=== PATIENT | male | born 1945 | race Two or more races ===

== ENCOUNTER 2019-04-24 13:30 | Outpatient (CLI) | payer MEDICARE, OTHER ==
[~2019-04-24] VITALS: Ht 175.3 cm; Wt 102.1 kg
[2019-04-24 15:04] VITALS: BP 125/98
[2019-04-24] MEDS ORDERED: PREDNISONE2.5 MG ORAL (15:14)
[2019-04-24] MEDS ORDERED: FOLIC ACID1 MG ORAL (15:14)
[2019-04-24] MEDS ORDERED: METHOTREXATE2.5 MG PO (15:14)
[2019-04-24] MEDS ORDERED: PHENYTOIN SODI100 MG ORAL (15:14)
[2019-04-24] MEDS ORDERED: HYDROCHLOROTHIA25 MG ORAL (15:14)
[2019-04-24] MEDS ORDERED: SPIRONOLACTONE100 MG ORAL (15:14)
[2019-04-24] MEDS ORDERED: LINZESS145 MCG PO (15:14)
--- NOTE | 2019-04-25 03:00 | Consultation ---
DATE OF CONSULTATION: 04/24/2019 GASTROENTEROLOGY CONSULTATION CONSULTING PHYSICIAN: Koby Chand M.D. CHIEF COMPLAINT: Constipation. HISTORY OF PRESENT ILLNESS: This is a 73-year-old male with a history of past medical history of hypertension, seizure disorder, and arthritis, referred to us for a screening colonoscopy. The patient suffers from chronic constipation . PAST MEDICAL HISTORY: 1. Hypertension. 2. Seizure disorder. 3. Arthritis. PAST SURGICAL HISTORY: History of cholecystectomy, appendectomy, and ventral hernia repair. MEDICATIONS: Please see medication reconciliation list. SOCIAL HISTORY: The patient denies any tobacco, alcohol, or drug abuse. FAMILY HISTORY: Noncontributory. REVIEW OF SYSTEMS: A 10-point review of systems was performed and pertinent positives in HPI. Review of systems positive for abdominal pain, GERD, constipation, and nausea. PHYSICAL EXAMINATION: VITAL SIGNS: Temperature 97.8, blood pressure is 112/98, pulse 73, and respirations 20. HEENT: Normocephalic and atraumatic. Sclerae anicteric. NECK: Supple. No evidence of lymphadenopathy. CARDIOVASCULAR: Regular rate and rhythm. Plus S1 and S2. No obvious murmur. LUNGS: Clear to auscultation bilaterally. ABDOMEN: Positive bowel sounds. Soft and nontender. No rebound. No guarding. No peritoneal sign. EXTREMITIES: No cyanosis. No clubbing. No edema. ASSESSMENT AND PLAN: This is a 73-year-old male with chronic constipation screening colonoscopy evaluation. The patient was given instruction for colonoscopy. The procedure was explained to him and risks and benefits were informed to him. The patient agreed, was scheduled for this Monday. I want to thank, Dr. Fagan, for this kind referral. Koby Chand M.D. DR: CECILY JOB#: [id number] CC: Jeronimo Fagan M.D.
== END 2019-04-24 15:30 | disposition home or self-care (01) ==
LOC: PAN 13:30
DX: K59.00 Constipation, unspecified (principal); I10 Essential (primary) hypertension; G40.909 Epilepsy, unspecified, not intractable, without status epilepticus; M19.90 Unspecified osteoarthritis, unspecified site; Z90.49 Acquired absence of other specified parts of digestive tract; Z90.89 Acquired absence of other organs
CPT/HCPCS: 99202

== ENCOUNTER 2019-05-28 10:13 | Outpatient (CLI) | payer MEDICARE, OTHER ==
[~2019-05-28 10:13] MED LIST: FOLIC ACID1 MG ORAL; HYDROCHLOROTHIA25 MG ORAL; LINZESS145 MCG PO; METHOTREXATE2.5 MG PO; PHENYTOIN SODI100 MG ORAL; PREDNISONE2.5 MG ORAL; SPIRONOLACTONE100 MG ORAL
[2019-05-28 10:22] VITALS: BP 115/83
--- NOTE | 2019-05-28 10:59 | General Progress Note ---
Assessment/Plan Assessment/Plan: REASON FOR PROCEDURE: The procedure, risks, benefits, and possible consequences, including hemorrhage, aspiration, perforation and infection, and alternative treatments, were explained to the patient/legal guardian by Dr. Koby Chand and the patient/legal guardian understood and accepted these risks. PROCEDURE IN DETAIL: After informed consent was obtained and the patient was adequately sedated, first rectal exam was performed, which was normal. Then, the scope was advanced from the rectum into the cecum documented by appendix orifice, ileocecal valve, and right lower quadrant palpation. Quality of prep was very good. The patient had no obvious polyp seen in this colonoscopy examination. There was few diverticula in the left colon. Retroflexion of rectum showed evidence of few small nonbleeding internal hemorrhoids. SUMMARY OF FINDINGS: 1. Scattered sigmoid diverticulosis. 2. Internal hemorrhoids. cont linzess 290 RTC 2 months Subjective ROS Limited/Unobtainable: Yes Allergies: Coded Allergies: No Known Allergies (Unverified , 04/24/19) Objective General Appearance: alert EENT: normal ENT inspection Neck: supple Cardiovascular: normal rate Respiratory/Chest: decreased breath sounds Abdomen: normal bowel sounds, non tender, soft Extremities: non-tender Koby Chand MD May 28, 2019 10:59
== END 2019-05-28 12:13 | disposition home or self-care (01) ==
LOC: PAN 10:13
DX: K57.90 Diverticulosis of intestine, part unspecified, without perforation or abscess without bleeding (principal); K64.8 Other hemorrhoids